=== PATIENT | male | born 1970 | race Caucasian/White ===

== ENCOUNTER 2017-04-26 06:02 | Day surgery (SDC) | payer BC ==
[~2017-04-26] VITALS: Ht 177.8 cm; Wt 84.4 kg
[~2017-04-26 06:02] MED LIST: PANTOPRAZOLE
[2017-04-26 06:48] VITALS: Ht 177.8 cm; Wt 84.4 kg
[2017-04-26] MEDS ORDERED: AZEL23SP NASAL (07:01)
[2017-04-26] MEDS ORDERED: PANT40TA4 PO (07:01)
[2017-04-26] MEDS ORDERED: RANI300T PO (07:01)
[2017-04-26 07:23] VITALS: BP 137/78; PULSE 81; RESP 13
[2017-04-26] MEDS ORDERED: FENTAnyl 50 MCG/ML VIAL ONE (08:19)
[2017-04-26] MEDS ORDERED: MIDAZOLAM 1 MG/ML 2 ML INJ ONE ×2 (08:20)
[2017-04-26 08:44] VITALS: BP 132/80; RESP 18
--- NOTE | 2017-05-03 05:26 | GILP ---
DATE OF PROCEDURE: 04/26/2017 PREOPERATIVE DIAGNOSIS: Screening colonoscopy. POSTOPERATIVE DIAGNOSES: 1. Colonoscopy all the way to the cecum. 2. Internal hemorrhoids. 3. No colon neoplasm was identified. PROCEDURE PERFORMED: Colonoscopy. SURGEON: Joselo Lyles MD. INDICATION FOR PROCEDURE: Mr. Katharina España is a 46-year-old male patient who noticed a change in the bowel habits. He never got a screening colonoscopy. The procedure and possible complications were well explained to the patient. The patient understood and consented to the procedure. DESCRIPTION OF PROCEDURE: Under influence of fentanyl and Versed the colonoscope was carefully introduced in the rectum under direct vision and was advanced all the way to the cecum. Findings, the patient had internal hemorrhoids. No colon neoplasm was identified. He tolerated the procedure very well. There were no complications from the procedure. At the end of procedure he was awake with stable vital signs and he was discharged home in the care of his family. IMPRESSION: 1. Colonoscopy all the way to the cecum. 2. Internal hemorrhoids. 3. No colon neoplasm was identified. PLAN: 1. High-fiber diet. 2. Next screening colonoscopy in 10 years. Dictated By: MD JACK Brennan/fide/tam /Document#: [id number] CC: Joselo Lyles MD;*[facility]*
== END 2017-04-26 08:53 | disposition home or self-care (01) ==
LOC: GIL 06:02
PROVIDERS: ATTEND Internal Medicine Gastroenterology
DX: Z12.11 Encounter for screening for malignant neoplasm of colon (principal); K64.8 Other hemorrhoids
CPT/HCPCS: 45378; J2250; J3010